=== PATIENT | female | born 1970 | race Caucasian/White ===

== ENCOUNTER 2018-01-16 14:42 | Emergency (ER) | payer OTHER ==
[~2018-01-16] VITALS: Ht 165.1 cm; Wt 54.4 kg
[2018-01-16] MEDS ORDERED: HYDROCODONE/APAP 5-325MG TABLET PO ONE (17:45)
[2018-01-16] MEDS ORDERED: HYDROCODONE/APAP 5-325MG TABLET ONE (17:51)
--- NOTE | 2018-01-16 18:15 | NUR ---
Patient discharged to home in stable conditon. Written and verbal after care instructions given. Patient verbalizes understanding of instructions.PT USING [employer] FOR SUPPORT.
[2018-01-16 18:20] VITALS: BP 111/79
== END 2018-01-16 18:21 | disposition home or self-care (01) ==
LOC: ER 14:44
DX: M48.54XA Collapsed vertebra, not elsewhere classified, thoracic region, initial encounter for fracture (principal); Z88.0 Allergy status to penicillin; W19.XXXA Unspecified fall, initial encounter; Y92.89 Other specified places as the place of occurrence of the external cause; Y93.89 Activity, other specified; Y99.8 Other external cause status
CPT/HCPCS: 72072; 72128; 99284; A4663